=== PATIENT | female | born 1955 | race Caucasian/White ===

== ENCOUNTER 2018-05-03 14:14 | Emergency (ER) | payer OTHER ==
[~2018-05-03] VITALS: Ht 160 cm; Wt 67.0 kg
[2018-05-03] MEDS ORDERED: LOSA50TA7 PO (14:46)
[2018-05-03] MEDS ORDERED: ASPI500T4 PO (14:46)
[2018-05-03] MEDS ORDERED: MECLIZINE CHEWABLE 25 MG TAB ONE (14:47)
[2018-05-03] MEDS ORDERED: ONDANSETRON ODT 4 MG ONE (14:47)
[2018-05-03] MEDS ORDERED: SODIUM CHLORIDE FLUSH 10ML SYR IVF ONE (15:00)
[2018-05-03] MEDS ORDERED: MECLIZINE CHEWABLE 25 MG TAB PO ONE (15:00)
[2018-05-03] MEDS ORDERED: PLEASE ENTER ALLERGIES MC SCH (15:00)
[2018-05-03] MEDS ORDERED: DIAZEPAM 5 MG/ML, 2ML IVPush ONE (15:00)
[2018-05-03] MEDS ORDERED: ONDANSETRON ODT 4 MG PO ONE (15:00)
[2018-05-03 15:02] LABS: BASOPHILS # (AUTO) 0.06 x10^3/uL (0-0.1); BASOPHILS % (AUTO) 1 % (0-1); EOSINOPHILS # (AUTO) 0.11 x10^3/uL (0-0.4); EOSINOPHILS % (AUTO) 1 % (1-7); LYMPHOCYTES # (AUTO) 1.88 x10^3/uL (1-3.4); LYMPHOCYTES % (AUTO) 19 % (22-44); MD NO; MEAN CORPUSCULAR HEMOGLOBIN 29.9 pg (27.0-34.8); MEAN CORPUSCULAR HGB CONC 34.1 g/dL (32.4-35.8); MEAN CORPUSCULAR VOLUME 87.7 fL (80-100); MEAN PLATELET VOLUME 9.4 fL (7.4-10.4); MONOCYTES # (AUTO) 0.41 x10^3/uL (0.2-0.8); MONOCYTES % (AUTO) 4 % (2-9); NEUTROPHILS # (AUTO) 7.44 x10^3/uL (1.8-6.8); NEUTROPHILS % (AUTO) 75 % (42-75); PLATELET COUNT 357 x10^3/uL (130-400); RED BLOOD COUNT 5.07 x10^6/uL (3.82-5.3); RED CELL DISTRIBUTION WIDTH 13.6 % (9.6-15.2)
[2018-05-03 15:13] LABS: ANION GAP 11 mmol/L (5-15); CALCIUM 9.1 mg/dL (8.5-10.1); CHLORIDE 111 mmol/L (98-107); CREATININE 1.14 mg/dL (0.55-1.02)
[2018-05-03] MEDS ORDERED: SODIUM CHLORIDE 0.9% 1,000ML IVBOLUS ONE (16:00)
[2018-05-03 19:07] VITALS: BP 120/70
== END 2018-05-03 19:08 | disposition home or self-care (01) ==
LOC: ED 18:29
DX: R42 Dizziness and giddiness (principal)
CPT/HCPCS: 36415; 70450; 80048; 82040; 85025; 93005; 96374; 99285; J3360; J7030; Q0162